=== PATIENT | female | born 1960 | race Caucasian/White ===

== ENCOUNTER 2023-07-14 13:31 | Emergency (ER) | payer BC, SELFPAY ==
[2023-07-14 13:34] VITALS: BP 166/95; PULSE 110; RESP 18; TEMP 36.1; O2SAT 96; BMI 36.1
--- NOTE | 2023-07-14 13:51 | CT_ITS ---
STUDY: CT BRAIN WITHOUT CONTRAST REASON FOR EXAM: Female, 63 years old. Head injury due to a fall. History of breast cancer. RADIATION DOSAGE (If Supplied By Facility): CTDIvol = ( 44.99 ) mGy, DLP = ( 812.98 ) mGycm TECHNIQUE: Transaxial CT imaging of the brain was performed without administration of intravenous contrast material. Individualized dose optimization techniques were used for this CT. COMPARISON: No relevant priors. FINDINGS: Small scalp hematoma overlying the right frontal bone. There is hyperostosis frontalis internus. Normal size ventricles and extra-axial spaces for the patient''s age. Normal white matter tracts of the cerebral hemispheres. Normal basal ganglia and thalami. Normal brainstem. Normal cerebellum. There is no intracranial hemorrhage. There are no findings of an acute ischemic infarction. Normal visualized paranasal sinuses. CT/Brain/Head without Contrast IMPRESSION: Small scalp hematoma overlying the right frontal bone. Electronically Signed: Jeff Reece MD at 14:45 EDT ,
--- NOTE | 2023-07-14 15:38 | EX.ED.DYSGE1 ---
HPI History of Present Illness Chief Complaint: Head Injury Narrative Narrative: Patient is presenting to the ER with a mechanical fall and a large right frontal scalp hematoma, approximately 7 x 3 cm. It is firm. Patient is on no blood thinners. She has no headache or neck pain. at bedside. Patient is here secondary to the fall and a large hematoma in her head. Patient was walking along a sidewalk from a restaurant, there is a small crack in the spring, she excellently tripped on a crack in this man fell forward. was at bedside, he was a witness to this as well. Patient has no significant injury. No headache, no neck pain. Before the fall she was not lightheaded, dizzy, she had no chest pain or shortness of breath. She has no other acute complaints. Patient does have a history of bilateral breast cancer, she does have mets to the bones. Patient does not want anything for pain at this time, no nausea or vomiting. PFSH PFSH Allergy/AdvReac Type Severity Reaction Status Date / Time No Known Allergies Allergy Verified 07/14/23 13:34 Social History Smoking Status: Never smoker ROS ROS ED ROS Narrative REVIEW OF SYSTEMS: Unless otherwise stated in this report the patient's positive and negative responses for review of systems for constitutional, eyes, ENT, cardiovascular, respiratory, gastrointestinal, neurological, , musculoskeletal, and integument systems and related systems to the presenting problem are either stated in the history of present illness or were not pertinent or were negative for the symptoms and/or complaints related to the presenting medical problem. EXAM Physical Exam Narrative Exam Narrative: Vital signs reviewed and patient is not hypoxic. General: The patient appears well and in no apparent distress. Patient is resting comfortably on cart. Not toxic, lethargic, or listless. Skin: Warm, dry, no pallor noted. There is no rash noted. Head: Normocephalic, Patient has a 7 x 3 cm firm hematoma to the right frontal aspect of her forehead. Minimal pain to the area. No midline or paracervical tenderness to palpation. Full range of motion of the cervical spine with no difficulty. Eye: Normal conjunctiva, no drainage, EOMI. PERRL. Ears, Nose, Mouth, and Throat: oral mucosa is moist. Nares patent. Mouth without vesicles. Cardiovascular: Regular Rate and Rhythm, no murmurs, gallops, or rubs Respiratory: Patient is in no distress, no accessory muscle use, lungs are clear to auscultation, no wheezing, rales or rhonchi Back: non-tender, no CVA tenderness bilaterally to percussion. NO CTLS midline or paraspinal tenderness to palpation. GI: Soft, no tenderness to palpation, no masses appreciated. No rebound, guarding, or rigidity noted. Musculoskeletal: The patient has full range of motion of all extremities and joints with no difficulty. Patient has no motor, no sensory deficits. Neurological: A&O x4, normal speech, no focal neurological deficits. Psychiatric: Cooperative Const Vital Signs: 07/14/23 15:50 Pulse Rate 77 Respiratory Rate 16 Blood Pressure 160/85 H Pulse Ox 98 MDM MDM MDM Narrative Medical decision making narrative: CT of the brain shows no acute pathology. Patient wanted nothing for headache because she has no headache. Patient did have ice applied. Education on using ice at home with hematoma was discussed, she was also educated that she may have more ecchymosis or possible black eye with gravity pushing things downhill. Patient understands to use Tylenol if needed. Patient will return if any significant headache, intractable nausea and vomiting, or any other acute complaints. Patient feels comfortable going home. Patient looks well, walked out of the ER with no difficulty. Radiography Diagnostic Testing: Clinical Impression(s) from Imaging Studies Brain CT 07/14/23 13:51 IMPRESSION: Small scalp hematoma overlying the right frontal bone. Electronically Signed: Jeff Reece MD at 14:45 EDT Reading Location ID and State: [facility] / [place] , Service support , Discharge Plan Triage Chief Complaint: Head Injury Other Complaint: Fall ED Provider: Yang Brunson Dx/Rx/DC Orders Clinical Impression: Hematoma of frontal scalp, CHI (closed head injury) Instructions: ED Head Injury (Adult), ED Hematoma Primary Care Provider: Damon Perdomo Referrals: Damon Perdomo, [Primary Care Provider] - Activity Restrictions/Additional Instructions: Ice 20 minutes on, 20 minutes off. Education done at bedside and close head injury and on discharge paperwork. Disposition Disposition: Home, Self Care Discharge Date/Time: 07/14/23 15:54
[2023-07-14 15:50] VITALS: BP 160/85; PULSE 77; RESP 16; O2SAT 98
== END 2023-07-14 15:54 | disposition home or self-care (01) ==
PROVIDERS: Emergency Provider Emergency Medicine; PCP Family Medicine; Visit Provider Emergency Medicine
DX: S00.03XA Contusion of scalp, initial encounter (principal); W10.1XXA Fall (on)(from) sidewalk curb, initial encounter
CPT/HCPCS: 70450; 99282